=== PATIENT | female | born 1950 | race Hispanic/Latino ===

== ENCOUNTER 2024-06-04 13:47 | Inpatient (IN) | payer OTHER ==
--- NOTE | 2024-06-04 14:46 | RAD REPORT ---
EXAM DESCRIPTION: CT - Chest Abd Pelvis Wo Con - 06/04/2024 2:30 pm CLINICAL HISTORY: Shortness of breath, chest and abdominal pain COMPARISON: None TECHNIQUE: Computed axial tomography of the chest, abdomen and pelvis was obtained. Oral contrast wa s given. IV contrast was not requested. All CT scans are performed using dose optimization technique as appropriate and may include automated exposure control or mA/KV adjustment according to patient size. FINDINGS: The evaluation of mediastinum, kay, vessels and solid organs is limited secondary to the lack of IV contrast administration Small calcific opacity right upper lobe appears chronic. Linear opacity posterior right lower lobe li omar also chronic. Left lung appears clear 1 centimeter pretracheal mediastinal lymph node. Coronary arterial calcifications. Cardiomegaly A pleural effusion is not present. A pericardial effusion is not seen. The liver, spleen, pancreas, adrenals and kidneys appear grossly normal Prominent atherosclerotic disease. No evidence of diverticulitis. No adnexal mass. Gallbladder wall thickening Small to moderate periumbilical hernia IMPRESSION: Gallbladder wall thickening. Ultrasound recommended
[2024-06-04] MEDS ORDERED: NA CHLORIDE 0.9% 500 ML ONE ×2 (14:58→17:24)
[2024-06-04] MEDS ORDERED: ACETAMINOPHEN 500 MG TAB ONE (14:58)
[2024-06-04] MEDS ORDERED: ONDANSETRON 4 MG/2 ML VIAL ONE (14:58)
[2024-06-04] MEDS ORDERED: NA CHLORIDE 0.9% 100 ML ONE ×2 (14:59→17:24)
[2024-06-04] MEDS ORDERED: CEFEPIME 1 GM/VIAL ONE (14:59)
[2024-06-04 15:24] LABS: Absolute Basophils 0.1 K/uL (0-0.5); Absolute Eosinophils 0.1 K/uL (0-0.5); Absolute Lymphocytes (CBC) 0.8 K/uL (0.7-4.9); Absolute Monocytes 0.9 K/uL (0.1-1.3); Absolute Neutrophil 15.4 K/uL (1.8-8.0); Basophils % 0.7 % (0-1.3); Eosinophils % 0.6 % (0-4.4); Hematocrit 28.5 % (36.0-45.0); Lymphocytes % 4.6 % (15.3-44.8); MCH 27.4 pg (27.0-35.0); MCHC 31.7 g/dL (32.0-36.0); MCV 86.4 fL (80-100); MPV 9.1 fL (7.6-11.3); Monocytes % 5.2 % (3.3-12.3); Neutrophils % 88.9 % (41.7-73.7); Nucleated Red Blood Cells % 0.1 % (0-0); Platelets 169 thou/uL (152-406); Red Cell Distribution Width 15.5 % (12.1-15.2)
[2024-06-04 15:42] LABS: Albumin 2.9 g/dL (3.4-5.0); Albumin/Globulin Ratio 0.7 (1.1-1.8); Anion Gap 18.8 mEq/L (5.0-15.0); Bilirubin Total 0.4 mg/dL (0.2-1.0); Globulin 4.1 g/dL (2.3-3.5); Potassium 4.8 mEq/L (3.5-5.1)
[2024-06-04 15:43] LABS: SARS-CoV-2 Antigen CONTROL BLUE LINE VIS/BG OK; SARS-CoV-2 Antigen Rapid Res Negative (Negative)
[2024-06-04 15:52] LABS: PT Prothrombin Time 11.4 SECONDS (9.4-12.5); PTT, Activated Partial Thromb 25.8 SECONDS (24.3-36.9); Protime INR 1.02
[2024-06-04] MEDS ORDERED: INSULIN REGULAR (HUMAN) 100 UNIT/ML ONE (16:04)
[2024-06-04 16:19] LABS: Blood Morphology Comment NOT SEEN (NOT SEEN); Platelet Estimate ADEQ; Platelets Clumped FEW; White Blood Cell Scan OK (OK)
--- NOTE | 2024-06-04 16:49 | RAD REPORT ---
EXAM DESCRIPTION: US - Abdomen Exam Limited - 06/04/2024 4:25 pm CLINICAL HISTORY: Abdominal pain. COMPARISON: CT June 04, 2024 FINDINGS: Small gallstone. Gallbladder wall measures 7 millimeters with pericholecystic fluid. The biliary tree is normal caliber. IMPRESSION: Cholelithiasis. Thickened gallbladder wall with pericholecystic fluid probably indicating cholecystitis
--- NOTE | 2024-06-04 17:11 | ER ---
Nurse's Notes [facility] Name: Flory Garg Age: 73 yrs Sex: Female : 1950 Arrival Date: 06/04/2024 Time: 13:47 Bed 2 Private MD: Diagnosis: Severe sepsis;Acute cholecystitis;Hyperglycemia Presentation: 06/04 14:05 Chief complaint: Patient states: Yesterday started having chills. Today started having cm10 chills, vomiting, chest pain and shortness of breath. Pt was sent to the ED from Dialysis. Last dialysis was Tuesday. Coronavirus screen: Client denies travel out of the [place] in the last 14 days. Ebola Screen: Patient denies travel to an Ebola-affected area in the 21 days before illness onset. No symptoms or risks identified at this time. Initial Sepsis Screen: Does the patient meet any 2 criteria? RR > 20 per min. Temp <36.0*C (96.8*F)) or > 38.3*C (100.9*F). Does the patient have a suspected source of infection? No. Patient's initial sepsis screen is negative. Risk Assessment: Do you want to hurt yourself or someone else? Patient reports no desire to harm self or others. Onset of symptoms was June 04, 2024. 14:05 Method Of Arrival: Wheelchair cm10 14:05 Acuity: SEJAL 2 cm10 Triage Assessment: 17:04 General: Appears in no apparent distress. Behavior is calm, cooperative. Pain: Denies tl4 pain. EENT: No signs and/or symptoms were reported regarding the EENT system. Neuro: Level of Consciousness is awake, alert, obeys commands, Oriented to person, place, time, situation, Speech is normal, Facial symmetry appears normal. Cardiovascular: Denies chest pain, shortness of breath, Capillary refill < 3 seconds Patient's skin is warm and dry. Respiratory: Airway is patent Respiratory effort is even, unlabored, Respiratory pattern is regular, symmetrical, Breath sounds are clear bilaterally. Denies cough, shortness of breath. GI: Reports nausea, vomiting. : No signs and/or symptoms were reported regarding the genitourinary system. Derm: No signs and/or symptoms reported regarding the dermatologic system. Musculoskeletal: No signs and/or symptoms reported regarding the musculoskeletal system. Historical: - Allergies: 14:07 No Known Allergies; cm10 - PMHx: 14:07 End stage renal disease; Dialysis M,W,F; Diabetes mellitus; Hypertensive disorder; cm10 - PSHx: 14:07 Dialysis Fistula Left upper arm; cm10 - Immunization history:: Adult Immunizations up to date. - Infectious Disease History:: Denies. - Social history:: Smoking status: Patient denies any tobacco usage or history of. - Family history:: not pertinent. Screenin:[facility] ED Fall Risk Assessment (Adult) History of falling in the last 3 months, tl4 including since admission No falls in past 3 months (0 pts) Confusion or Disorientation No (0 pts) Intoxicated or Sedated No (0 pts) Impaired Gait No (0 pts) Mobility Assist Device Used No (0 pt) Altered Elimination No (0 pt) Score/Fall Risk Level 0 - 2 = Low Risk Oriented to surroundings, Maintained a safe environment, Educated pt \T\ family on fall prevention, incl call for assistance when getting out of bed, Assessed \T\ reinforced patient's understanding of fall precautions. Abuse screen: Denies threats or abuse. Denies injuries from another. Nutritional screening: No deficits noted. Tuberculosis screening: No symptoms or risk factors identified. Assessment: 15:15 Reassessment: Patient and/or family updated on plan of care and expected duration. Pain tl4 level reassessed. Patient is alert, oriented x 3, equal unlabored respirations, skin warm/dry/pink. Pt denies any needs. Pt in position of comfort. Call lock at bedside. Daughter at bedside. Will continue to monitor. 16:53 Reassessment: Patient and/or family updated on plan of care and expected duration. Pain tl4 level reassessed. Patient is alert, oriented x 3, equal unlabored respirations, skin warm/dry/pink. Call lock at bedside. Family at bedside. Pt updated on status. Pt denies any needs. Will continue to monitor Patient states feeling better. 16:54 Pain: Denies pain. GI: Abdomen is non-distended. tl4 Vital Signs: 14:05 BP 164 / 68; Pulse 62; Resp 28; Temp 102.9(O); Pulse Ox 96% on R/A; Weight 65.77 kg; cm10 Height 5 ft. 0 in. ; Pain 7/10; 14:30 BP 146 / 45; Pulse 57; Resp 21; Pulse Ox 96% on R/A; tl4 15:00 BP 147 / 44; Pulse 57; Resp 22; Temp 101.4; Pulse Ox 96% on R/A; tl4 15:30 BP 137 / 47; Pulse 56; Resp 16; Pulse Ox 95% on R/A; tl4 16:00 BP 133 / 47; Pulse 54; Resp 19; Pulse Ox 96% on R/A; tl4 16:30 BP 124 / 42; Pulse 53; Resp 14; Temp 99.1(O); Pulse Ox 97% on R/A; tl4 17:30 BP 130 / 45; Pulse 67; Resp 13; Temp 99.1(O); Pulse Ox 99% on R/A; tl4 18:11 BP 131 / 89; Pulse 66; Resp 18; Pulse Ox 97% on R/A; tl4 14:05 Body Mass Index 28.32 (65.77 kg, 152.4 cm) cm10 14:05 Pain Scale: Adult cm10 ED Course: 13:53 Patient arrived in ED. mg5 13:57 Larry Butler MD is Attending Physician. rt 14:07 Triage completed. cm10 14:08 Arm band placed on Patient placed in an exam room, on a stretcher. cm10 14:32 CT Chest Abdomen Pelvis W/O Contrast In Process Unspecified. EDMS 14:32 EKG completed in triage. Results shown to MD. cm10 14:33 Jian Patel, RN is Primary Nurse. rs5 14:33 EKG done, by ED staff, reviewed by Larry Butler MD. cm10 15:12 CMP Sent. tl4 15:12 Lactate w/ 2H reflex if indic. Sent. tl4 15:12 Protime (+inr) Sent. tl4 15:12 Ptt, Activated Sent. tl4 15:12 Influenza Screen (a \T\ B) Sent. tl4 15:12 SARS RAPID Sent. tl4 15:12 CBC with Automated Diff Sent. tl4 15:15 Patient has correct armband on for positive identification. Placed in gown. Bed in low tl4 position. Call light in reach. Side rails up X2. Adult w/ patient. Provided Education on: ed process, call lock. Client placed on continuous cardiac and pulse oximetry monitoring. NIBP monitoring applied. pole cutter on. Door closed. Noise minimized. Lights dimmed. Moved to private room. Pillow given. 15:53 [address] Butler at bedside discussing plan of care. elida 1521 BEULAH met with patient and daughter at bedside in the ED exam room. Patient identified by name and . Demographic sheet confirmed. Patient is visiting the [facility] for the of her grandson. Daughter is unsure if there is an MPOA in place. Patient states she has a walker that she uses the most of the time and will use the wheelchair if feeling extra tired. Patient states she has dialysis MWF. Daughter states dialysis was arranged locally during their visit,however was unable to go today since she woke up feeling ill. Mrs. Garg has another daughter named Anahi Reynolds who lives with her in [facility]. No HH, home oxygen or medical services at this time. Daughter at bedside states the preferred plan is for Anahi to transport Mrs. Garg back home upon discharge. CM team will continue to follow and coordinate care. 16:27 US Abdomen Limited In Process Unspecified. EDMS 17:03 Warm blanket given. tl4 17:05 No provider procedures requiring assistance completed. Inserted saline lock: 22 gauge tl4 in right antecubital area, using aseptic technique. Blood collected. Flushed with 10 mL NS. 17:09 Erin Buckley MD is Hospitalizing Provider. rt 18:22 Blood Culture Adult (2): computer cancelled cultures, reorder Sent. tl4 18:32 Patient admitted, IV remains in place. tl4 Administered Medications: 15:23 Drug: NS 0.9% IV 500 ml IV at bolus once Route: IV; Rate: bolus; Site: right tl4 antecubital; Delivery: Primary tubing; 17:38 Follow up: Response: No adverse reaction; IV Status: Completed infusion; IV Intake: tl4 500ml 15:24 Drug: Cefepime IVPB 1 grams IVPB at 200 ml/hr once over 30 mins; (mix in NS 100 mL) tl4 Route: IVPB; Rate: 200 ml/hr; Infused Over: 30 mins; Site: right antecubital; 17:38 Follow up: Response: No adverse reaction; IV Status: Completed infusion; IV Intake: tl4 100ml 15:24 Drug: Ondansetron IVP 4 mg IVP once; over 2 minutes Route: IVP; Infused Over: 2 mins; tl4 Site: right antecubital; 17:38 Follow up: Response: No adverse reaction tl4 15:31 Drug: Acetaminophen PO 1000 mg PO once Route: PO; tl4 18:04 Follow up: Response: No adverse reaction; Temperature is decreased tl4 16:20 Drug: Insulin Regular Human IVP 10 units IVP once {Co-Signature: rs5 (Jian Patel tl4 RN).} Route: IVP; Site: right antecubital; 17:38 Follow up: Response: No adverse reaction tl4 18:08 Drug: Piperacillin-Tazobactam IVPB 3.375 grams IVPB once over 60 mins; (mix in NS 100 tl4 mL) Route: IVPB; Infused Over: 60 mins; Site: right antecubital; Delivery: Primary tubing; 18:32 Follow up: Response: No adverse reaction; IV Status: Completed infusion; IV Intake: tl4 100ml 18:08 Drug: NS 0.9% IV 500 ml IV at bolus once Route: IV; Rate: bolus; Site: right tl4 antecubital; Delivery: Primary tubing; 18:32 Follow up: Response: No adverse reaction; IV Status: Infusion continued; IV Intake: tl4 200ml Medication: 17:05 VIS not applicable for this client. tl4 Intake: 17:38 IV: 500ml; Total: 500ml. tl4 17:38 IV: 100ml; Total: 600ml. tl4 18:32 IV: 100ml; Total: 700ml. tl4 18:32 IV: 200ml; Total: 900ml. tl4 Outcome: 17:10 Decision to Hospitalize by Provider. rt 18:32 Admitted to Med/surg accompanied by tech, via stretcher, room 202, tl4 18:32 Condition: stable 18:32 Instructed on the need for admit, 18:33 Patient left the ED. tl4 Signatures: Dispatcher [employer] EDAK Larry Butler MD MD rt Jian Patel, DIANA RN rs5 Chen Webb RN RN [facility] Rubia Grayson mg5 Lonnie Gomez RN RN tl4 Kavita Abernathy RN RN ane Jian Patel RN rs5
--- NOTE | 2024-06-04 17:11 | EDPHYS ---
Physician Documentation [facility] Name: Flory Garg Age: 73 yrs Sex: Female : 1950 Arrival Date: 06/04/2024 Time: 13:47 Bed 2 Private MD: ED Physician Larry Butler HPI: 06/04 14:39 This 73 yrs old Female presents to ER via Wheelchair with complaints of Fever, rt Vomiting. 14:39 Patient presents to the ED with chills, fever, vomiting. Chills started yesterday. rt Patient was going to dialysis today when she was noted to have a fever, states that she has a chest pain, vomiting but denies any abdominal pain. Denies other acute complaints at this time, symptoms are moderate in severity, no other aggravating elevating factors.. Historical: - Allergies: 14:07 No Known Allergies; cm10 - PMHx: 14:07 End stage renal disease; Dialysis M,W,F; Diabetes mellitus; Hypertensive disorder; cm10 - PSHx: 14:07 Dialysis Fistula Left upper arm; cm10 - Immunization history:: Adult Immunizations up to date. - Infectious Disease History:: Denies. - Social history:: Smoking status: Patient denies any tobacco usage or history of. - Family history:: not pertinent. ROS: 14:39 MS/Extremity: Negative for injury and deformity, Skin: Negative for injury, rash, and rt discoloration, Neuro: Negative for headache, weakness, numbness, tingling, and seizure, 14:39 Constitutional: Positive for chills, fever, 14:39 Cardiovascular: Positive for chest pain, Negative for edema, 14:39 Respiratory: Positive for shortness of breath, Negative for cough, 14:39 Abdomen/GI: Positive for nausea and vomiting, Negative for abdominal pain, Exam: 14:39 Constitutional: This is a well developed, well nourished patient who is awake, alert, rt and in no acute distress. Head/Face: Normocephalic, atraumatic. Chest/axilla: Normal chest wall appearance and motion. Nontender with no deformity. No lesions are appreciated. Cardiovascular: Regular rate and rhythm with a normal S1 and S2. No gallops, murmurs, or rubs. Normal PMI, no JVD. No pulse deficits. Respiratory: Lungs have equal breath sounds bilaterally, clear to auscultation and percussion. No rales, rhonchi or wheezes noted. No increased work of breathing, no retractions or nasal flaring. Abdomen/GI: Soft, non-tender, with normal bowel sounds. No distension or tympany. No guarding or rebound. No evidence of tenderness throughout. Skin: Warm, dry with normal turgor. Normal color with no rashes, no lesions, and no evidence of cellulitis. MS/ Extremity: Pulses equal, no cyanosis. Neurovascular intact. Full, normal range of motion. Neuro: Awake and alert, GCS 15, oriented to person, place, time, and situation. Cranial nerves II-XII grossly intact. Motor strength 5/5 in all extremities. Sensory grossly intact. Cerebellar exam normal. Normal gait. 14:40 ECG was reviewed by the Attending Physician. rt Vital Signs: 14:05 BP 164 / 68; Pulse 62; Resp 28; Temp 102.9(O); Pulse Ox 96% on R/A; Weight 65.77 kg; cm10 Height 5 ft. 0 in. ; Pain 7/10; 14:30 BP 146 / 45; Pulse 57; Resp 21; Pulse Ox 96% on R/A; tl4 15:00 BP 147 / 44; Pulse 57; Resp 22; Temp 101.4; Pulse Ox 96% on R/A; tl4 15:30 BP 137 / 47; Pulse 56; Resp 16; Pulse Ox 95% on R/A; tl4 16:00 BP 133 / 47; Pulse 54; Resp 19; Pulse Ox 96% on R/A; tl4 16:30 BP 124 / 42; Pulse 53; Resp 14; Temp 99.1(O); Pulse Ox 97% on R/A; tl4 17:30 BP 130 / 45; Pulse 67; Resp 13; Temp 99.1(O); Pulse Ox 99% on R/A; tl4 18:11 BP 131 / 89; Pulse 66; Resp 18; Pulse Ox 97% on R/A; tl4 14:05 Body Mass Index 28.32 (65.77 kg, 152.4 cm) cm10 14:05 Pain Scale: Adult cm10 MDM: 14:09 Patient medically screened. rt 20:23 Differential diagnosis: Viral syndrome, sepsis, cholecystitis. Data reviewed: vital rt signs, nurses notes, lab test result(s), EKG, radiologic studies. Consideration of Admission/Observation Patient was admitted/placed on observation. Management of patient was discussed with the following: [employer] Treating Unit Operator: Discussed with Dr. Kearns who will evaluate patient in the ED.. I considered the following discharge prescriptions or medication management in the emergency department Medications were administered in the Emergency Department. See MAR. Independent interpretation of the following test(s) in the Emergency Department CT Scan: My interpretation is No bowel obstruction seen on interpretation of CT scan images. Care significantly affected by the following chronic conditions: Chronic Kidney Disease. Counseling: I had a detailed discussion with the patient and/or guardian regarding the historical points, exam findings, and any diagnostic results supporting the discharge/admit diagnosis, lab results, radiology results, the need for further work-up and treatment in the hospital. Response to treatment: the patient's symptoms have markedly improved after treatment. 06/04 14:15 Order name: CMP; Complete Time: 16:20 rt 06/04 14:15 Order name: Lactate w/ 2H reflex if indic.; Complete Time: 16:20 rt 06/04 14:15 Order name: Protime (+inr); Complete Time: 16:20 rt 06/04 14:15 Order name: Ptt, Activated; Complete Time: 16:20 rt 06/04 14:22 Order name: CBC with Automated Diff; Complete Time: 16:20 EDMS 06/04 14:42 Order name: SARS RAPID; Complete Time: 16:20 rt 06/04 14:42 Order name: Influenza Screen (a \T\ B); Complete Time: 16:20 rt 06/04 15:01 Order name: Glucose, Ancillary Testing; Complete Time: 15:10 EDMS 06/04 15:12 Order name: Blood Culture Adult (2): computer cancelled cultures, reorder rt 06/04 15:27 Order name: CBC Smear Scan; Complete Time: 16:20 EDMS 06/04 17:46 Order name: Ghost Lactate-NO COLLECT Timer; Complete Time: 20:23 EDMS 06/04 17:49 Order name: Urinalysis w/ reflexes EDMS 06/04 17:53 Order name: Glucose, Ancillary Testing; Complete Time: 20:23 EDMS 06/04 14:16 Order name: CT Chest Abdomen Pelvis W/O Contrast; Complete Time: 14:55 rt 0812 15:20 Order name: US Abdomen Limited; Complete Time: 16:50 rt 0812 14:16 Order name: Accucheck; Complete Time: 15:12 rt 0812 14:16 Order name: Cardiac monitoring; Complete Time: 14:32 rt 0812 14:16 Order name: EKG - Nurse/Tech; Complete Time: 14:32 rt 0812 14:16 Order name: IV Saline Lock - Large Bore; Complete Time: 15:12 rt 0812 14:16 Order name: Labs collected and sent; Complete Time: 15:12 rt 0812 14:16 Order name: O2 Per Protocol; Complete Time: 14:32 rt 0812 14:16 Order name: O2 Sat Monitoring; Complete Time: 14:32 rt 0812 14:16 Order name: Vital Signs; Complete Time: 14:32 rt EC:40 Rate is 103 beats/min. Rhythm is regular, Sinus tachycardia with No ectopy. Left axis rt deviation noted. IL interval is normal. QRS interval is normal. QT interval is normal. No Q waves. Clinical impression: NSR w/ Non-specific ST/T Changes. Administered Medications: 15:23 Drug: NS 0.9% IV 500 ml IV at bolus once Route: IV; Rate: bolus; Site: right tl4 antecubital; Delivery: Primary tubing; 17:38 Follow up: Response: No adverse reaction; IV Status: Completed infusion; IV Intake: tl4 500ml 15:24 Drug: Cefepime IVPB 1 grams IVPB at 200 ml/hr once over 30 mins; (mix in NS 100 mL) tl4 Route: IVPB; Rate: 200 ml/hr; Infused Over: 30 mins; Site: right antecubital; 17:38 Follow up: Response: No adverse reaction; IV Status: Completed infusion; IV Intake: tl4 100ml 15:24 Drug: Ondansetron IVP 4 mg IVP once; over 2 minutes Route: IVP; Infused Over: 2 mins; tl4 Site: right antecubital; 17:38 Follow up: Response: No adverse reaction tl4 15:31 Drug: Acetaminophen PO 1000 mg PO once Route: PO; tl4 18:04 Follow up: Response: No adverse reaction; Temperature is decreased tl4 16:20 Drug: Insulin Regular Human IVP 10 units IVP once {Co-Signature: rs5 (Jian Patel tl4 RN).} Route: IVP; Site: right antecubital; 17:38 Follow up: Response: No adverse reaction tl4 18:08 Drug: Piperacillin-Tazobactam IVPB 3.375 grams IVPB once over 60 mins; (mix in NS 100 tl4 mL) Route: IVPB; Infused Over: 60 mins; Site: right antecubital; Delivery: Primary tubing; 18:32 Follow up: Response: No adverse reaction; IV Status: Completed infusion; IV Intake: tl4 100ml 18:08 Drug: NS 0.9% IV 500 ml IV at bolus once Route: IV; Rate: bolus; Site: right tl4 antecubital; Delivery: Primary tubing; 18:32 Follow up: Response: No adverse reaction; IV Status: Infusion continued; IV Intake: tl4 200ml Disposition Summary: 06/04/24 17:10 Hospitalization Ordered Notes: Hospitalization Status: Inpatient Admission rt Provider: Erin Buckley rt Location: Telemetry/[facility] (Inpatient) rt Condition: Guarded rt Problem: new rt Symptoms: have improved rt Bed/Room Type: Standard rt Room Assignment: 202(06/04/24 17:52) Diagnosis - Severe sepsis rt - Acute cholecystitis rt - Hyperglycemia rt Forms: - Medication Reconciliation Form rt - SBAR form rt - Leadership Thank You Letter rt Critical care time excluding procedures: 20:23 Critical care time: Bedside Care: 30 minutes, Consultation: 5 minutes. Total time: 35 rt minutes Signatures: Dispatcher [employer] EDMS Jackie Everett Ryan, MD MD rt Chen Webb RN RN cm10 Lonnie Gomez RN RN tl4 Jian Patel RN rs5 Corrections: (The following items were deleted from the chart) 14:21 14:21 CBC+H.LAB.BRZ ordered. EDMS EDMS 14:21 14:21 COMPREHENSIVE METABOLIC PANEL+C.LAB.BRZ ordered. EDMS EDMS 14:21 14:21 LACTATE+C.LAB.BRZ ordered. EDMS EDMS 14:21 14:21 PROTIME (+INR)+COAG.LAB.BRZ ordered. EDMS EDMS 14:21 14:21 PTT, ACTIVATED+COAG.LAB.BRZ ordered. EDMS EDMS 14:22 Chest Abdomen Pelvis Wo Con+CT.RAD.BRZ ordered. EDMS EDMS 17:52 17:10 rt eb
[2024-06-04] MEDS ORDERED: PIPERACIL/TAZO 3.375 GM VIAL IV ONE (17:24)
--- NOTE | 2024-06-04 17:44 | P.HP ---
Certification for Inpatient Patient admitted to: Observation <Mickie Singletary - Last Filed: 06/05/24 00:50> Patient History Date of Service: 06/05/24 Reason for admission: Cholecystitis History of Present Illness: 73 yrs old [id number]-[id number] female with a past medical history End stage renal disease; Dialysis M,W,F; Diabetes mellitus; Hypertensive disorder; presents to the emergency room with fever. She reports associated nausea vomiting chills. She reports going to [facility] dialysis today and was sent home due to fever of 102. She reports associated fever, nausea vomiting abdominal pain and chills over the last several days that has been intermittent. She reports symptoms worse today. She lives near [facility]. Is here visiting her family. She reports she has dialysis scheduled at [facility] Tuesday W tuesday. She denies chest pain, edema, dizziness. Family is at bedside, patient was evaluated by Dr. Quiroz for acute cholecystitis, with possible cholecystectomy in the a.m. Nephrology to consult end-stage renal disease on to eval hemodialysis needed while inpatient. Plan to admit to observation, for acute cholecystitis, end-stage renal disease on hemodialysis, with nephrology to consult. - Past Medical/Surgical History -: End-stage renal disease hemodialysis -: Diabetes mellitus type 2 -: Hypertension -: Dialysis fistula right chest wall - Social History Smoking Status: Never smoker Alcohol use: No CD- Drugs: No Caffeine use: No Place of Residence: Home <Mickie Singletary - Last Filed: 06/05/24 00:50> Date of Service: 06/05/24 <Erin Buckley - Last Filed: 06/05/24 11:50> Allergies No Known Allergies Allergy (Verified 06/05/24 00:42) Home Medications: Aspirin [Aspirin EC] 81 mg PO DAILY 06/05/24 Atorvastatin Calcium 40 mg PO BEDTIME 06/05/24 Carvedilol [Coreg] 12.5 mg PO BID 06/05/24 Clopidogrel Bisulfate [Plavix] 75 mg PO DAILY 06/05/24 Ferric Citrate [Auryxia] 1 g PO TID 06/05/24 Insulin Aspart Prot/Insuln Asp [Novolog Mix 70-30 Flexpen Syrn] 40 unit SQ DAILY 06/05/24 Nifedipine [Nifedipine ER] 30 mg PO DAILY 06/05/24 Review of Systems Per HPI <Mickie Singletary - Last Filed: 06/05/24 00:50> Physical Examination - Physical Exam General: Alert, In no apparent distress, Oriented x3 HEENT: Atraumatic, Normocephalic Neck: Supple, 2+ carotid pulse no bruit Respiratory: Normal air movement, Diminished Cardiovascular: Normal pulses, Regular rate/rhythm Capillary refill: <2 Seconds Gastrointestinal: Normal bowel sounds, Other (Right upper quadrant tenderness) Musculoskeletal: No clubbing, No swelling Integumentary: No breakdown, No significant lesion Neurological: Normal speech, Normal strength at 5/5 x4 extr Urinary: Dialysis catheter (Right chest wall) - Studies Laboratory Data (last 24 hrs) 06/04/24 06/04/24 06/04/24 15:05 15:05 15:05 WBC 17.40 H Hgb 9.0 L Hct 28.5 L Plt Count 169 PT 11.4 INR 1.02 APTT 25.8 Sodium 129 L Potassium 4.8 BUN 77 H Creatinine 7.04 H Glucose 578 H* Total Bilirubin 0.4 AST 16 ALT 21 Alkaline Phosphatase 157 H Microbiology Data (last 24 hrs): 06/04/24 14:50 Nasopharnyx Influenza Type A Antigen Screen - Final 06/04/24 14:50 Nasopharnyx Influenza Type B Antigen Screen - Final <Mickie Singletary - Last Filed: 06/05/24 00:50> - Studies Laboratory Data (last 24 hrs) 06/04/24 06/04/24 06/04/24 15:05 15:05 15:05 WBC 17.40 H Hgb 9.0 L Hct 28.5 L Plt Count 169 PT 11.4 INR 1.02 APTT 25.8 Sodium 129 L Potassium 4.8 BUN 77 H Creatinine 7.04 H Glucose 578 H* Total Bilirubin 0.4 AST 16 ALT 21 Alkaline Phosphatase 157 H Microbiology Data (last 24 hrs): 06/04/24 14:50 Nasopharnyx Influenza Type A Antigen Screen - Final 06/04/24 14:50 Nasopharnyx Influenza Type B Antigen Screen - Final <Erin Buckley - Last Filed: 06/05/24 11:50> Assessment and Plan - Plan Assessment plan Sepsis without shock secondary to acute cholecystitis abdominal pain Acute cholecystitis Surgery to eval, IV fluids, IV antibiotic, n.p.o. after midnight, Surgeon was in room, discussed with patient and family laparoscopic cholecystectomy, risks and possible complications, family verbalized understand As needed analgesics, antiemetics, [id number] female with a past medical history End stage renal disease; Dialysis M,W,F; Diabetes mellitus; Hypertensive disorder; presents to the emergency room with fever. She reports associated nausea vomiting chills. She reports going to [facility] dialysis today and was sent home due to fever of 102. She reports associated fever, nausea vomiting abdominal pain and chills over the last several days that has been intermittent. She reports symptoms worse today. She lives near [facility]. Is here visiting her family. She reports she has dialysis scheduled at [facility] Tuesday. She denies chest pain, edema, dizziness. Family is at bedside, patient was evaluated by Dr. Quiroz for acute cholecystitis, end-stage renal disease on hemodialysis. Blood cultures, urine culture CT Of the abdomen pelvis IMPRESSION: Gallbladder wall thickening. Ultrasound recommended Abdominal ultrasound IMPRESSION: Cholelithiasis. Thickened gallbladder wall with pericholecystic fluid probably indicating cholecystitis End-stage renal disease on hemodialysis Nephrology consult for hemodialysis Hypertension Resume appropriate home meds EKG Rate is 103 beats/min. Rhythm is regular, Sinus tachycardia with No ectopy. Left axis rt deviation noted. MO interval is normal. QRS interval is normal. QT interval is normal. No Q waves. Clinical impression: NSR w/ Non-specific ST/T Change Diabetes type 2 Accu-Cheks, sliding scale Full code Diet n.p.o. after midnight DVT SCDs Disposition Home independent prior . Discharge Plan: Home - Advance Directives Does patient have a Living Will: No Does patient have a Durable POA for Healthcare: No - Code Status/Comfort Care Code Status: Full Code Critical Care: No Time Spent Managing Pts Care (In Minutes): 55 <Mickie Singletary - Last Filed: 06/05/24 00:50> - Plan Pt seen and examined. I agree with the note by the [employer]. Pt is a 73 yo female with past medical history End stage renal disease on Dialysis MWF, Diabetes mellitus, and Hypertensive disorder who presents with fever. Pt was sent from dialysis center to the ER for further evaluation of the fever. On admission, lab studies show elevated WBC, cr 7.04, Na 129, elevated blood sugar. CT abd shows acute cholecystitis. At bedside, pt is in NAD. A/P: Sepsis 2/2 Acute cholecystitis: Per CT abd. Continue iv zosyn and f/u blood cx. Consulted Gen surgeon. ESRD: Continue HD per schedule. Consulted Nephrology for dialysis. Htn: Continu ehome med. DM Ii: Continue accuchek, SSI, lantus 20u daily and ADA diet Code: full <Erin Buckley - Last Filed: 06/05/24 11:50>
[2024-06-04] MEDS ORDERED: MORPHINE 2 MG/ML SYR IV PRN (19:01)
[2024-06-04] MEDS ORDERED: ACETAMINOPHEN 500 MG TAB PO PRN (19:01)
[2024-06-04] MEDS: INSULIN REGULAR (HUMAN) 100 UNIT/ML SQ SCH (20:54)
--- NOTE | 2024-06-04 20:55 | P.CNS ---
Date of Consult: 06/05/24 Reason for Consult: ESRD Requesting Physician: Erin Buckley Chief Complaint: Fever History of Present Illness: [id number] 14:39 This 73 yrs old Female presents to ER via Wheelchair with complaints of Fever, rt Vomiting. 14:39 Patient presents to the ED with chills, fever, vomiting. Chills started yesterday. rt Patient was going to dialysis today when she was noted to have a fever, states that she has a chest pain, vomiting but denies any abdominal pain. Denies other acute complaints at this time, symptoms are moderate in severity, no other aggravating elevating factors.. She [place] dialysis [place] a [facility] unit. She gets HD through the [facility] and reports a usual UF of 3-4 liters over four hours. They have not used the CVC for four weeks, and it is supposed to be removed. She is here for the of her grandson on Tuesday. Allergies No Known Allergies Allergy (Verified 06/05/24 00:42) Home medications list reviewed: Yes Home Medications: Aspirin [Aspirin EC] 81 mg PO DAILY 06/05/24 Atorvastatin Calcium 40 mg PO BEDTIME 06/05/24 Carvedilol [Coreg] 12.5 mg PO BID 06/05/24 Clopidogrel Bisulfate [Plavix] 75 mg PO DAILY 06/05/24 Ferric Citrate [Auryxia] 1 g PO TID 06/05/24 Insulin Aspart Prot/Insuln Asp [Novolog Mix 70-30 Flexpen Syrn] 40 unit SQ DAILY 06/05/24 Nifedipine [Nifedipine ER] 30 mg PO DAILY 06/05/24 - Past Medical/Surgical History Diabetic: Yes -: ESRD -: HTN -: Diastolic CHF -: DM II -: Anemia Review of Systems 10-point ROS is otherwise unremarkable General: Malaise Gastrointestinal: Abdominal Pain Physical Examination Temp Pulse Resp BP Pulse Ox 99.1 F 66 18 131/89 06/04/24 17:30 06/04/24 18:11 06/04/24 18:11 06/04/24 18:11 General: In no apparent distress, Oriented x3, Cooperative HEENT: Atraumatic Neck: Supple Respiratory: Normal air movement Cardiovascular: Regular rate/rhythm Gastrointestinal: Non-distended, No guarding Musculoskeletal: No clubbing, No contractures Integumentary: No rashes, No cyanosis Neurological: Normal speech Laboratory Data (last 24 hrs) 06/04/24 06/04/24 06/04/24 15:05 15:05 15:05 WBC 17.40 H Hgb 9.0 L Hct 28.5 L Plt Count 169 PT 11.4 INR 1.02 APTT 25.8 Sodium 129 L Potassium 4.8 BUN 77 H Creatinine 7.04 H Glucose 578 H* Total Bilirubin 0.4 AST 16 ALT 21 Alkaline Phosphatase 157 H Imagings Data: EXAM DESCRIPTION: CT - Chest Abd Pelvis Wo Con - 06/04/2024 2:30 pm CLINICAL HISTORY: Shortness of breath, chest and abdominal pain COMPARISON: None TECHNIQUE: Computed axial tomography of the chest, abdomen and pelvis was obtained. Oral contrast was given. IV contrast was not requested. All CT scans are performed using dose optimization technique as appropriate and may include automated exposure control or mA/KV adjustment according to patient size. FINDINGS: The evaluation of mediastinum, kay, vessels and solid organs is limited secondary to the lack of IV contrast administration Small calcific opacity right upper lobe appears chronic. Linear opacity chief of anesthesiology ior right lower lobe likely also chronic. Left lung appears clear 1 centimeter pretracheal mediastinal lymph node. Coronary arterial calcifications. Cardiomegaly A pleural effusion is not present. A pericardial effusion is not seen. The liver, spleen, pancreas, adrenals and kidneys appear grossly normal Prominent atherosclerotic disease. No evidence of diverticulitis. No adnexal mass. Gallbladder wall thickening Small to moderate periumbilical hernia IMPRESSION: Gallbladder wall thickening. Ultrasound recommended EXAM DESCRIPTION: US - Abdomen Exam Limited - 06/04/2024 4:25 pm CLINICAL HISTORY: Abdominal pain. COMPARISON: CT June 04, 2024 FINDINGS: Small gallstone. Gallbladder wall measures 7 millimeters with pericholecystic fluid. The biliary tree is normal caliber. IMPRESSION: Cholelithiasis. Thickened gallbladder wall with pericholecystic fluid probably indicating cholecystitis Conclusions/Impression: 73 yo HF admitted for cholecystitis ESRD Hyponatremia -Arrange for acute HD HTN with CKD/ CHF -Hold antihypertensives at this time Diastolic CHF, chronic -Low sodium diet -HD with UF Anemia in CKD -Retacrit qHD CKD MBD -NPO Atherosclerosis of the aorta -Restart statin Hospitalist and ER notes reviewed Thank you kindly for the consultation
[2024-06-04] MEDS ORDERED: MANNITOL 25% 12.5 GM/50 ML VIAL IV PRN (20:58)
[2024-06-04] MEDS ORDERED: NA CHLORIDE 0.9% 1,000 ML IV PRN (20:58)
[2024-06-04] MEDS ORDERED: PIPER TAZO 3.375 GM in NA CHLORIDE 0.9% 100 ML IV SCH (21:00)
[2024-06-04] MEDS ORDERED: PIPER TAZO 2.25 GM in NA CHLORIDE 0.9% 50 ML IV SCH (21:00)
[2024-06-04] MEDS ORDERED: ALBUMIN HUMAN 25% 50 ML IV SCH (21:00)
[2024-06-04] MEDS: PIPER TAZO 3.375 GM in NA CHLORIDE 0.9% 100 ML IV SCH (22:17)
[2024-06-05 07:40] LABS: Absolute Basophils 0.1 K/uL (0-0.5); Absolute Eosinophils 0.3 K/uL (0-0.5); Absolute Lymphocytes (CBC) 2.4 K/uL (0.7-4.9); Absolute Monocytes 0.9 K/uL (0.1-1.3); Absolute Neutrophil 12.5 K/uL (1.8-8.0); Basophils % 0.4 % (0-1.3); Eosinophils % 1.6 % (0-4.4); Hematocrit 25.9 % (36.0-45.0); Hemoglobin 8.5 g/dL (12.0-15.0); MCH 28.1 pg (27.0-35.0); MCHC 32.8 g/dL (32.0-36.0); MCV 85.7 fL (80-100); Monocytes % 5.7 % (3.3-12.3); Neutrophils % 77.3 % (41.7-73.7); Nucleated Red Blood Cells % 0.2 % (0-0); Platelets 169 thou/uL (152-406); RBC Red Blood Cell Count 3.02 M/uL (3.86-4.86); Red Cell Distribution Width 15.2 % (12.1-15.2)
[2024-06-05 07:48] LABS: Albumin 2.5 g/dL (3.4-5.0); Albumin/Globulin Ratio 0.6 (1.1-1.8); Anion Gap 13.4 mEq/L (5.0-15.0); Bilirubin Total 0.5 mg/dL (0.2-1.0); Magnesium 2.4 mg/dL (1.6-2.4); Phosphorus 6.7 mg/dL (2.5-4.9); Potassium 5.4 mEq/L (3.5-5.1); Protein, Total 6.5 g/dL (6.4-8.2)
[2024-06-05] MEDS: ONDANSETRON 4 MG/2 ML VIAL IV PRN (08:13)
[2024-06-05] MEDS: INSULIN GLARGINE 100 UNIT/ML SQ SCH (09:00)
[2024-06-05 10:43] LABS: Hepatitis B surface AG Interp. Nonreactive (Nonreactive)
[2024-06-05 10:44] LABS: HBsAG Nonreactive Report Report
--- NOTE | 2024-06-05 11:52 | P.PN ---
Subjective Date of Service: 06/05/24 Chief Complaint: Fever Pt is resting comfortably in bed. She is in NAD. Pt is waiting for dialysis before doing cholecystectomy. No other complaints. Review of Systems General: Unremarkable Eyes: Unremarkable ENT: Unremarkable Respiratory: Unremarkable Cardiovascular: Unremarkable Gastrointestinal: Unremarkable Genitourinary: Unremarkable Musculoskeletal: Unremarkable Integumentary: Unremarkable Neurological: Unremarkable Lymphatics: Unremarkable Physical Examination - Vital Signs Temperature: 98.2 F Blood Pressure: 148/67 Pulse: 16 Respirations: 16 Pulse Ox (%): 92 - Physical Exam General: Alert, In no apparent distress, Oriented x3 HEENT: Atraumatic, Normocephalic, PERRLA Neck: Supple, 2+ carotid pulse no bruit, JVD not distended Respiratory: Clear to auscultation bilaterally, Normal air movement Cardiovascular: No edema, Normal pulses, Regular rate/rhythm, Normal S1 S2 Capillary refill: <2 Seconds Gastrointestinal: Normal bowel sounds, Soft and benign, Non-distended Musculoskeletal: No clubbing, No swelling, No contractures Integumentary: No rashes, No breakdown, No significant lesion Neurological: Normal gait, Normal speech, Normal strength at 5/5 x4 extr, Normal tone, Sensation intact Lymphatics: No axilla or inguinal lymphadenopathy - Studies Laboratory Data (last 24 hrs) 06/05/24 06/05/24 06/04/24 07:15 07:15 15:05 WBC 16.20 H Hgb 8.5 L Hct 25.9 L Plt Count 169 PT 11.4 INR 1.02 APTT 25.8 Sodium 130 L Potassium 5.4 H BUN 89 H Creatinine 7.25 H Glucose 278 H Phosphorus 6.7 H Magnesium 2.4 Total Bilirubin 0.5 AST 11 L ALT 18 Alkaline Phosphatase 121 H D 06/04/24 06/04/24 15:05 15:05 WBC 17.40 H Hgb 9.0 L Hct 28.5 L Plt Count 169 PT INR APTT Sodium 129 L Potassium 4.8 BUN 77 H Creatinine 7.04 H Glucose 578 H* Phosphorus Magnesium Total Bilirubin 0.4 AST 16 ALT 21 Alkaline Phosphatase 157 H Microbiology Data (last 24 hrs): 06/04/24 14:50 Nasopharnyx Influenza Type A Antigen Screen - Final 06/04/24 14:50 Nasopharnyx Influenza Type B Antigen Screen - Final Assessment And Plan - Plan Sepsis 2/2 Acute cholecystitis: Per CT abd. Continue iv zosyn and f/u blood cx. Consulted Gen surgeon. ESRD: Continue HD per schedule. Consulted Nephrology for dialysis. Htn: Continue home med. DM II: Continue accuchek, SSI, lantus 20u daily and ADA diet Code: full Dispo: pending hospital course.
[2024-06-05] MEDS: PNEUMOCOCCAL VACCINE 0.5 ML IMVAC ONE (14:00)
[2024-06-05] MEDS ORDERED: propofoL 200 MG/20 ML VIAL IV ONE (15:01)
[2024-06-05] MEDS ORDERED: ROCURONIUM 50 MG/5 ML VIAL IV ONE (15:01)
[2024-06-05] MEDS ORDERED: LIDOCAINE 2% MPF 5 ML VIAL ONE (15:01)
[2024-06-05] MEDS ORDERED: FENTANYL CITR 100 MCG/2 ML ONE (15:01)
[2024-06-05] MEDS ORDERED: ONDANSETRON 4 MG/2 ML VIAL ONE (15:01)
[2024-06-05] MEDS: NA CHLORIDE 0.9% 500 ML ONE (15:30)
[2024-06-05] MEDS: LIDOCAINE HCL/EPINEPHRINE 20 ML MDV ONE (16:05)
[2024-06-05] MEDS ORDERED: NEOSTIGMINE 1 MG/ML -10 ML VIAL ONE (16:57)
[2024-06-05] MEDS ORDERED: GLYCOPYRROLATE 0.2 MG/ML SYR ONE (16:57)
--- NOTE | 2024-06-05 17:22 | P.OP ---
Preoperative diagnosis: Cholecystitis, HD Catheter in place Postoperative diagnosis: Cholecystitis, HD Catheter in place Primary procedure: Laparoscopic Cholecystectomy with ICG Cholangiography Secondary procedure: Removal of Tunneled Hemodialysis Catheter Anesthesia: GETA + Local Estimated blood loss: <5cc Specimen: Gallbladder, Catheter Tip for Culture Findings: Cholecystitis, RUQ Adhesions, Complications: None Implants: Daron Hemostatic Powder Transferred to: Recovery Room Condition: Good
[2024-06-05] MEDS: MORPHINE 4 MG/ML SYR ONE (18:00)
[2024-06-05] MEDS: MEPERIDINE HCL 25 MG/ML SYR ONE (18:28)
[2024-06-05] MEDS ORDERED: HYDROCODONE/APAP 5/325 MG TAB PO PRN (22:08)
--- NOTE | 2024-06-06 04:33 | OP ---
Date of Procedure: 06/05/2024 Surgeon: Brandon Kearns MD, Preoperative Diagnoses: 1.Cholecystitis. 2.Attention/management, hemodialysis catheter in place in right internal jugular position. Postoperative Diagnoses: 1.Cholecystitis. 2.Attention/management, hemodialysis catheter in place in right internal jugular position. Procedure Performed: 1.Laparoscopic cholecystectomy with Indocyanine green cholangiography. 2.Removal of tunneled hemodialysis catheter. Anesthesia: General endotracheal plus local with 1% lidocaine with epinephrine. Estimated Blood Loss: Less than 5 mL. Specimen: Gallbladder and catheter tip sent for culture and catheter sent for ID only. Findings: 1.Evidence of acute on chronic cholecystitis with significant adhesions in the right upper quadrant beneath the omentum completely encasing the gallbladder as well as significant thick adhesions. 2.Hydropic gallbladder. 3.Significant scar tissue in the lower abdomen as well with adhesions. Complications: None. Implants: Daron hemostatic powder matrix. Disposition: The patient was transferred to the recovery room in good condition. Procedure In Detail: After informed consent was obtained, the patient was brought to the operating r oom, prepped and draped in usual fashion after adequate anesthesia was achieved. I anesthetized an a hetal in the supraumbilical position down to subcutaneous tissues. A 5 mm 0-degree optical trocar was introduced in the abdomen with no evidence is complication. Insufflation was obtained to 15 mmHg at this time. There was no injury to vital structure upon entry in the abdomen. Additional trocars eunice tamiko in the right upper quadrant, similarly anesthetized and sharply incised. A [address] d under direct visualization without incident or complication. At this point, I placed another troca r in the right upper quadrant. This was similarly anesthetized, sharply incised. A 5 mm trocar was placed under direct visualization without incident or complication. The patient was then positioned in the head up right-side up position. Ratcheted grasper was used to attempt to grasp the patient's gallbladder, which was completely encased at this point. As such, I placed an additional trocar for a total of 4 trocars. The last trocar was placed in the right lower abdomen under direct visualizati on without incident or complication. I then proceeded to take down the scar tissue encasing the gall bladder in the right upper quadrant using electrocautery and blunt dissection circumferentially aroun d the gallbladder to allow for visualization grasping of the gallbladder. After this was completed, I grasped the fundus of the gallbladder, placed it toward the patient's right shoulder and continued the dissection down the Primo pouch of the gallbladder. At this point, I skeletonized 2 structure s identified as both the cystic duct and cystic artery. Critical view of safety was obtained at this point. After skeletonizing the structures, Indocyanine green cholangiography was performed at this point showing the relevant anatomy with the cystic duct and common duct confluence despite the signif icant inflammatory change in hydropic appearance of the gallbladder is visualized with the assistance of Indocyanine green. At this point, I placed double titanium clips on the proximal side and single on the distal side of both the cystic duct and cystic artery and ligated these structures between En do Brian without incident or complication. There was no leakage of bile blood throughout the proced ure. At this point, I removed the gallbladder off the hepatic fossa using electrocautery. There was minimal bleeding from the area of the hepatic fossa and this required minimal fulguration at this po int and the gallbladder was placed in EndoCatch bag, removed through the umbilical trocar site and se nt off for pathologic examination. The area was copiously irrigated once again until completely kb r. Additional fulguration was performed in the bed of the gallbladder and I sprayed Daron hemostati c powder into the subhepatic space to allow for additional hemostasis at this point. I then inspecte d the area with Indocyanine green cholangiography once again and showed no leakage of bile throughout the procedure including at the end of the procedure at this point. I then positioned the patient ba ck in neutral position. Remaining effluent was suctioned out from the perihepatic space. I then nitza sed the umbilical trocar site using a Jose-Sandra suture passer with an 0 Vicryl in an interrupte d fashion with good approximation of tissues. The abdomen was then desufflated under direct visualiz ation without incident or complication. All skin edges were then copiously irrigated and closed with a 4-0 Monocryl in a running fashion. Dermabond was placed over top. At this point, I turned my att ention to the hemodialysis catheter in the right subclavian exit site, but as its course had an inter nal jugular insertion. At this point, the patient was placed in a steep Trendelenburg position and I could dissect it circumferentially around using primarily blunt dissection to bring the cuff into a more reasonable position, however due to the significant scarring, I had to make a small incision ove rlying the skin to allow to bring the cuff into the visual range. At this point, the cuff was visual ized and circumferentially dissected around using a combination of blunt dissection and sharp dissect ion and electrocautery to allow for removal of the cuff. At this point, the pressure was held at the insertion site and the exit site and the catheter was removed. Tip was sent for culture at this poi nt and the remaining catheter was sent for pathologic examination for ID only. The patient was posit ioned in the head up position at this point, I irrigated the exit site at this point and closed the s kin using interrupted 3-0 nylon sutures and a sterile dressing was placed over top. The patient sandy rated the procedure well without incident or complication, transferred to PACU in good condition. Al l counts were correct at the end of the case. SHONDA/NORY Voice ID: [id number] Report ID: [id number]
[2024-06-06 05:04] LABS: Absolute Basophils 0.1 K/uL (0-0.5); Absolute Eosinophils 0.1 K/uL (0-0.5); Absolute Lymphocytes (CBC) 1.8 K/uL (0.7-4.9); Absolute Monocytes 1.3 K/uL (0.1-1.3); Absolute Neutrophil 10.7 K/uL (1.8-8.0); Basophils % 0.5 % (0-1.3); Eosinophils % 0.5 % (0-4.4); Hematocrit 26.8 % (36.0-45.0); Hemoglobin 8.9 g/dL (12.0-15.0); MCH 28.4 pg (27.0-35.0); MCHC 33.1 g/dL (32.0-36.0); MCV 85.8 fL (80-100); MPV 8.8 fL (7.6-11.3); Monocytes % 9.4 % (3.3-12.3); Neutrophils % 76.6 % (41.7-73.7); Platelets 157 thou/uL (152-406); RBC Red Blood Cell Count 3.12 M/uL (3.86-4.86); Red Cell Distribution Width 15.5 % (12.1-15.2)
[2024-06-06 05:16] LABS: Albumin 2.4 g/dL (3.4-5.0); Albumin/Globulin Ratio 0.6 (1.1-1.8); Anion Gap 13.3 mEq/L (5.0-15.0); Bilirubin Total 0.6 mg/dL (0.2-1.0); Globulin 4.1 g/dL (2.3-3.5); Magnesium 2.3 mg/dL (1.6-2.4); Phosphorus 5.7 mg/dL (2.5-4.9); Potassium 5.3 mEq/L (3.5-5.1); Protein, Total 6.5 g/dL (6.4-8.2)
[2024-06-06] MEDS: SODIUM ZIRCONIUM CYCLOSILICATE 10 GM/PKT PO ONE (08:50)
--- NOTE | 2024-06-06 12:03 | P.PN ---
Subjective Date of Service: 06/06/24 Chief Complaint: Fever Pt is resting comfortably in bed. She is in NAD. Pt had dialysis before lap cholecystectomy. Blood culture is growing GNR. Cathter tip cx is pending. Gen surgeon removed dialysis catheter. No other complaints. Review of Systems General: Unremarkable Eyes: Unremarkable ENT: Unremarkable Respiratory: Unremarkable Cardiovascular: Unremarkable Gastrointestinal: Unremarkable Genitourinary: Unremarkable Musculoskeletal: Unremarkable Integumentary: Unremarkable Neurological: Unremarkable Lymphatics: Unremarkable Physical Examination - Vital Signs Temperature: 97.3 F Blood Pressure: 139/51 Pulse: 66 Respirations: 16 Pulse Ox (%): 92 - Physical Exam General: Alert, In no apparent distress, Oriented x3 HEENT: Atraumatic, Normocephalic, PERRLA Neck: Supple, 2+ carotid pulse no bruit, JVD not distended Respiratory: Clear to auscultation bilaterally, Normal air movement Cardiovascular: No edema, Normal pulses, Regular rate/rhythm Capillary refill: <2 Seconds Gastrointestinal: Normal bowel sounds, Soft and benign, Non-distended, Tenderness Musculoskeletal: No clubbing, No swelling, No contractures Integumentary: No rashes, No breakdown, No significant lesion Neurological: Normal gait, Normal speech, Normal strength at 5/5 x4 extr, Normal tone Lymphatics: No axilla or inguinal lymphadenopathy - Studies Microbiology Data (last 24 hrs): 06/04/24 15:05 Blood - Blood Blood Culture Gram Stain - Final 06/04/24 15:05 Blood - Blood Gram Stain - Final Assessment And Plan - Plan Sepsis 2/2 Acute cholecystitis: Per CT abd. Continue iv zosyn and f/u blood cx. Consulted Gen surgeon. Bacteremia: Blood cx is growing GNR. Gen surgon removed dialysis catheter tip. .Pt need to take 1 week of iv abx. Will f/u sensitivities. ESRD: Continue HD per schedule. Consulted Nephrology for dialysis. Will replaced dialysis catheter. Hyperkalemia: K is 5.3. Will give lokelma. Htn: Continue home med. DM II: Continue accuchek, SSI, lantus 20u daily and ADA diet Code: full Dispo: pending hospital course.
[2024-06-06] MEDS: PNEUMOCOCCAL VACCINE 0.5 ML IMVAC ONE (14:00)
[2024-06-06] MEDS: EPOETIN ALFA 10,000 UNIT/ML VIAL IV SCH (17:45)
[2024-06-06 19:26] VITALS: BMI 4181.4
--- NOTE | 2024-06-06 20:27 | P.PN ---
Date of Service: 06/06/24 Vital Signs Temp Pulse Resp BP Pulse Ox 97.3 F 66 16 139/51 L 92 06/06/24 12:03 06/06/24 12:03 06/06/24 12:03 06/06/24 12:03 06/06/24 12:03 Medications Acetaminophen (Acetaminophen 500 Mg Tab) 500 mg PO Q4HP PRN PRN Reason: Pain scale 2-4 (Mild) Hydrocodone Bitart/Acetaminophen (Hydrocodone/Apap 5/325 Mg Tab) 1 tab PO Q6H PRN PRN Reason: Pain scale 5-7 (Moderate) Epoetin Jovan (Epoetin Jovan 10,000 Unit/Ml Vial) 10,000 unit IV EVERY HD DANA Last Admin: 06/06/24 17:45 Dose: 10,000 unit Heparin Sodium (Porcine) (Heparin 1,000 Unit/Ml Vial) 2,000 unit IV EVERY HD PRN PRN Reason: Prevent HD System Clotting Last Admin: 06/06/24 14:57 Dose: 2,000 unit Piperacillin Sod/Tazobactam (Sod 3.375 gm/ Sodium Chloride) 100 mls @ 25 mls/hr IV Q12HR DANA Last Admin: 06/06/24 09:57 Dose: 100 mls Albumin Human (Albumin 25%) 50 mls @ 100 mls/hr IV EVERY HD [facility] Insulin Glargine (Insulin Glargine 100 Unit/Ml) 20 unit SQ DAILY [facility] Last Admin: 06/06/24 09:00 Dose: 20 unit Insulin Human Regular (Insulin Regular (Human) 100 Unit/Ml) 0 unit SQ ACHS [facility]; Protocol Last Admin: 06/06/24 16:30 Dose: Not Given Mannitol (Mannitol 25% 12.5 Gm/50 Ml Vial) 12.5 gm IV EVERY HD PRN PRN Reason: Titrate to SBP (MUST DEFINE) Morphine Sulfate (Morphine 2 Mg/Ml Syr) 2 mg IV Q4H PRN PRN Reason: Pain scale 8-10 (Severe) Ondansetron HCl (Ondansetron 4 Mg/2 Ml Vial) 4 mg IV Q6HP PRN PRN Reason: NAUSEA / VOMITING Last Admin: 06/05/24 08:13 Dose: 4 mg Microbiology Results 06/04/24 15:05 Blood - Blood Aerobic Blood Culture - Preliminary 06/04/24 15:05 Blood - Blood Blood Culture Gram Stain - Final 06/04/24 15:05 Blood - Blood Anaerobic Blood Culture - Preliminary 06/04/24 15:05 Blood - Blood Gram Stain - Final 06/04/24 15:18 Blood - Blood Aerobic Blood Culture - Preliminary 06/04/24 15:18 Blood - Blood Blood Culture Gram Stain - Preliminary 06/04/24 15:18 Blood - Blood Anaerobic Blood Culture - Preliminary 06/04/24 15:18 Blood - Blood Gram Stain - Preliminary 06/04/24 14:50 Nasopharnyx Influenza Type A Antigen Screen - Final 06/04/24 14:50 Nasopharnyx Influenza Type B Antigen Screen - Final Assessment/ Plan: Nephrology No dyspnea No chest pain Feeling better No acute events overnight Vitals, medications, blood work and imaging reviewed in the chart General: In no apparent distress, Oriented x3, Cooperative HEENT: Atraumatic Neck: Supple Respiratory: Normal air movement Cardiovascular: Regular rate/rhythm Gastrointestinal: Non-distended, No guarding Musculoskeletal: No clubbing, No contractures Integumentary: No rashes, No cyanosis Neurological: Normal speech Laboratory Data (last 24 hrs) 06/04/24 06/04/24 06/04/24 15:05 15:05 15:05 WBC 17.40 H Hgb 9.0 L Hct 28.5 L Plt Count 169 PT 11.4 INR 1.02 APTT 25.8 Sodium 129 L Potassium 4.8 BUN 77 H Creatinine 7.04 H Glucose 578 H* Total Bilirubin 0.4 AST 16 ALT 21 Alkaline Phosphatase 157 H Imagings Data: EXAM DESCRIPTION: CT - Chest Abd Pelvis Wo Con - 06/04/2024 2:30 pm CLINICAL HISTORY: Shortness of breath, chest and abdominal pain COMPARISON: None TECHNIQUE: Computed axial tomography of the chest, abdomen and pelvis was obtained. Oral contrast was given. IV contrast was not requested. All CT scans are performed using dose optimization technique as appropriate and may include automated exposure control or mA/KV adjustment according to patient size. FINDINGS: The evaluation of mediastinum, kay, vessels and solid organs is limited secondary to the lack of IV contrast administration Small calcific opacity right upper lobe appears chronic. Linear opacity posterior right lower lobe likely also chronic. Left lung appears clear 1 centimeter pretracheal mediastinal lymph node. Coronary arterial calcifications. Cardiomegaly A pleural effusion is not present. A pericardial effusion is not seen. The liver, spleen, pancreas, adrenals and kidneys appear grossly normal Prominent atherosclerotic disease. No evidence of diverticulitis. No adnexal mass. Gallbladder wall thickening Small to moderate periumbilical hernia IMPRESSION: Gallbladder wall thickening. Ultrasound recommended EXAM DESCRIPTION: US - Abdomen Exam Limited - 06/04/2024 4:25 pm CLINICAL HISTORY: Abdominal pain. COMPARISON: CT June 04, 2024 FINDINGS: Small gallstone. Gallbladder wall measures 7 millimeters with pericholecystic fluid. The biliary tree is normal caliber. IMPRESSION: Cholelithiasis. Thickened gallbladder wall with pericholecystic fluid probably indicating cholecystitis Conclusions/Impression: 73 yo HF admitted for cholecystitis complicated by GNR sepsis -Continue Abx ESRD Hyperkalemia -HD TIW -HD CVC removed 06-05-24 -Continue HD through LUE AVF HTN with CKD/ CHF -Hold antihypertensives at this time Diastolic CHF, chronic -Low sodium diet -HD with UF Anemia in CKD -Retacrit qHD CKD MBD -Start Ergo -Start Phoslo Atherosclerosis of the aorta -Restart statin Hospitalist notes reviewed Case reviewed with the hospitalist team
[2024-06-06] MEDS: ATORVASTATIN 20 MG TAB PO SCH (21:49)
[2024-06-06 22:25] VITALS: O2SAT 91
[2024-06-07 04:42] LABS: Absolute Basophils 0.1 K/uL (0-0.5); Absolute Eosinophils 0.3 K/uL (0-0.5); Absolute Lymphocytes (CBC) 2.1 K/uL (0.7-4.9); Basophils % 0.6 % (0-1.3); Hematocrit 27.1 % (36.0-45.0); Hemoglobin 8.9 g/dL (12.0-15.0); Lymphocytes % 22.1 % (15.3-44.8); MCH 28.4 pg (27.0-35.0); MCHC 32.9 g/dL (32.0-36.0); MCV 86.5 fL (80-100); MPV 8.8 fL (7.6-11.3); Neutrophils % 63.3 % (41.7-73.7); Platelets 140 thou/uL (152-406); RBC Red Blood Cell Count 3.13 M/uL (3.86-4.86); Red Cell Distribution Width 15.7 % (12.1-15.2)
[2024-06-07] MEDS ORDERED: HYDRALAZINE HCL 20 MG/ML VIAL IV PRN (08:26)
[2024-06-07] MEDS: CALCIUM ACETATE 667 MG TAB PO SCH (09:04)
[2024-06-07] MEDS: DRISDOL (VITAMIN D=ERGOCALCIFEROL) 50000 UNIT CAP PO SCH (09:05)
[2024-06-07 12:29] VITALS: BP 160/63; TEMP 98.3
--- NOTE | 2024-06-07 12:29 | P.DS ---
Admission Date: 06/05/24 Discharge Date: 06/07/24 Disposition: ROUTINE DISCHARGE Discharge Condition: GOOD Reason for Admission: Fever Brief History of Present Illness: 73 yrs old [id number] female with a past medical history End stage renal disease; Dialysis M,W,F; Diabetes mellitus; Hypertensive disorder; presents to the emergency room with fever. She reports associated nausea vomiting chills. She reports going to [facility] dialysis today and was sent home due to fever of 102. She reports associated fever, nausea vomiting abdominal pain and chills over the last several days that has been intermittent. She reports symptoms worse today. She lives near [facility]. Is here visiting her family. She reports she has dialysis scheduled at [facility] Tuesday. She denies chest pain, edema, dizziness. Family is at bedside, patient was evaluated by Dr. Quiroz for acute cholecystitis, with possible cholecystectomy in the a.m. Nephrology to consult end-stage renal disease on to eval hemodialysis needed while inpatient. Plan to admit to observation, for acute cholecystitis, end-stage renal disease on hemodialysis, with nephrology to consult. Hospital Course: Pt is a 73 yo female with past medical history of End stage renal disease; Dialysis MWF, Diabetes mellitus, and Hypertensive disorder who presented with fever, nauseaa nd vomiting. She was sent to the ER from [facility] [place] [facility]. On admission, CT abd showed acute cholecystitis. We continued zosyn and consulted Gen surgeon. Gen surgeon did lap cholecystectomy and we continued prn pain med. Blood cx grew gram negative rods. We discharged pt with levaquin 750mg po Q48h for 1 week. We gave lokelma for hyperkalemia. We continued home meds for htn and Diabetes. Pt was in NAD prior to discharge. Vital Signs/Physical Exam: Temp Pulse Resp BP Pulse Ox 98.3 F 67 16 160/63 H 95 06/07/24 12:00 06/07/24 12:00 06/07/24 12:00 06/07/24 12:00 06/07/24 12:00 Laboratory Data at Discharge: WBC 9.50 thou/uL (4.3-10.9) 06/07/24 04:20 Hgb 8.9 g/dL (12.0-15.0) L 06/07/24 04:20 Hct 27.1 % (36.0-45.0) L 06/07/24 04:20 Plt Count 140 thou/uL (152-406) L 06/07/24 04:20 PT 11.4 SECONDS (9.4-12.5) 06/04/24 15:05 INR 1.02 06/04/24 15:05 APTT 25.8 SECONDS (24.3-36.9) 06/04/24 15:05 Sodium 134 mEq/L (136-145) L 06/07/24 04:20 Potassium 4.0 mEq/L (3.5-5.1) D 06/07/24 04:20 BUN 25 mg/dL (7-18) H 06/07/24 04:20 Creatinine 3.54 mg/dL (0.55-1.02) H 06/07/24 04:20 Glucose 136 mg/dL (74-106) H 06/07/24 04:20 Phosphorus 5.7 mg/dL (2.5-4.9) H 06/06/24 04:27 Magnesium 2.3 mg/dL (1.6-2.4) 06/06/24 04:27 Total Bilirubin 0.6 mg/dL (0.2-1.0) 06/06/24 04:27 AST 81 U/L (15-37) H 06/06/24 04:27 ALT 45 U/L (13-56) 06/06/24 04:27 Alkaline Phosphatase 109 U/L (45-117) 06/06/24 04:27 Home Medications: Aspirin [Aspirin EC] 81 mg PO DAILY 06/05/24 Atorvastatin Calcium 40 mg PO BEDTIME 06/05/24 Carvedilol [Coreg] 12.5 mg PO BID 06/05/24 Clopidogrel Bisulfate [Plavix] 75 mg PO DAILY 06/05/24 Ferric Citrate [Auryxia] 1 g PO TID 06/05/24 Insulin Aspart Prot/Insuln Asp [Novolog Mix 70-30 Flexpen] 40 unit SQ DAILY 06/05/24 Nifedipine [Nifedipine ER] 30 mg PO DAILY 06/05/24 levoFLOXacin [Levaquin] 750 mg PO Q48H 6 Days #3 tab 06/07/24 New Medications: levoFLOXacin [Levaquin] 750 mg PO Q48H 6 Days #3 tab Physician Discharge Instructions: Continue ad mikhail activity as tolerated. Take levaquin 750mg po Q48h for 1 week. FOllow up with PCP within 1 - 2 weeks. Diet: AHA Activity: Ad mikhail Followup: BILLY CERVANTES [Primary Care Provider] -
[2024-06-07] MEDS: levoFLOXacin 750 MG TAB PO SCH (12:31)
[2024-06-07] MEDS ORDERED: PNEUMOCOCCAL VACCINE 0.5 ML IMVAC ONE (14:00)
--- NOTE | 2024-06-07 20:20 | P.PN ---
Date of Service: 06/07/24 Vital Signs Temp Pulse Resp BP Pulse Ox 98.3 F 67 16 160/63 H 95 06/07/24 12:00 06/07/24 12:00 06/07/24 12:00 06/07/24 12:00 06/07/24 12:00 Microbiology Results 06/04/24 15:18 Blood - Blood Aerobic Blood Culture - Final 06/04/24 15:18 Blood - Blood Blood Culture Gram Stain - Final 06/04/24 15:18 Blood - Blood Anaerobic Blood Culture - Final 06/04/24 15:18 Blood - Blood Gram Stain - Final 06/04/24 15:05 Blood - Blood Aerobic Blood Culture - Final 06/04/24 15:05 Blood - Blood Blood Culture Gram Stain - Final 06/04/24 15:05 Blood - Blood Anaerobic Blood Culture - Final 06/04/24 15:05 Blood - Blood Gram Stain - Final 06/04/24 14:50 Nasopharnyx Influenza Type A Antigen Screen - Final 06/04/24 14:50 Nasopharnyx Influenza Type B Antigen Screen - Final Assessment/ Plan: Nephrology No dyspnea No chest pain Feeling better No acute events overnight Vitals, medications, blood work and imaging reviewed in the chart General: In no apparent distress, Oriented x3, Cooperative HEENT: Atraumatic Neck: Supple Respiratory: Normal air movement Cardiovascular: Regular rate/rhythm Gastrointestinal: Non-distended, No guarding Musculoskeletal: No clubbing, No contractures Integumentary: No rashes, No cyanosis Neurological: Normal speech Laboratory Data (last 24 hrs) 06/04/24 06/04/24 06/04/24 15:05 15:05 15:05 WBC 17.40 H Hgb 9.0 L Hct 28.5 L Plt Count 169 PT 11.4 INR 1.02 APTT 25.8 Sodium 129 L Potassium 4.8 BUN 77 H Creatinine 7.04 H Glucose 578 H* Total Bilirubin 0.4 AST 16 ALT 21 Alkaline Phosphatase 157 H Imagings Data: EXAM DESCRIPTION: CT - Chest Abd Pelvis Wo Con - 06/04/2024 2:30 pm CLINICAL HISTORY: Shortness of breath, chest and abdominal pain COMPARISON: None TECHNIQUE: Computed axial tomography of the chest, abdomen and pelvis was obtained. Oral contrast was given. IV contrast was not requested. All CT scans are performed using dose optimization technique as appropriate and may include automated exposure control or mA/KV adjustment according to patient size. FINDINGS: The evaluation of mediastinum, kay, vessels and solid organs is limited secondary to the lack of IV contrast administration Small calcific opacity right upper lobe appears chronic. Linear opacity posterior right lower lobe likely also chronic. Left lung appears clear 1 centimeter pretracheal mediastinal lymph node. Coronary arterial calcifications. Cardiomegaly A pleural effusion is not present. A pericardial effusion is not seen. The liver, spleen, pancreas, adrenals and kidneys appear grossly normal Prominent atherosclerotic disease. No evidence of diverticulitis. No adnexal mass. Gallbladder wall thickening Small to moderate periumbilical hernia IMPRESSION: Gallbladder wall thickening. Ultrasound recommended EXAM DESCRIPTION: US - Abdomen Exam Limited - 06/04/2024 4:25 pm CLINICAL HISTORY: Abdominal pain. COMPARISON: CT June 04, 2024 FINDINGS: Small gallstone. Gallbladder wall measures 7 millimeters with pericholecystic fluid. The biliary tree is normal caliber. IMPRESSION: Cholelithiasis. Thickened gallbladder wall with pericholecystic fluid probably indicating cholecystitis Conclusions/Impression: 73 yo HF admitted for cholecystitis complicated by GNR sepsis -Continue Abx ESRD Hyperkalemia -HD TIW -HD CVC removed 06-05-24 -Continue HD through LUE AVF HTN with CKD/ CHF -Restart antihypertensives Diastolic CHF, chronic -Low sodium diet -HD with UF Anemia in CKD -Retacrit qHD CKD MBD -Continue Ergo -Continue Phoslo Atherosclerosis of the aorta -Continue statin Hospitalist notes reviewed Case reviewed with the hospitalist team
--- NOTE | 2024-06-12 18:11 | EKG ---
Test Date: 2024-06-04 Test Time: 14:16:33 Cooler Room Worker: BEULAH MEASUREMENT RESULTS: Intervals: Rate: 103 MN: 152 QRSD: 90 QT: 354 QTc: 463 [place]: P: MN: 152 QRS: -44 T: 102 INTERPRETIVE STATEMENTS: Sinus tachycardia Left axis deviation Marked ST abnormality, possible inferior subendocardial injury Abnormal ECG No previous ECG available for comparison Electronically Signed On 06-12-24 17:55:46 CDT by Irwin Morris
== END 2024-06-07 13:11 | disposition home or self-care (01) | DRG 853 ==
LOC: ER 13:47 → 2ND 18:04 → OBSVTOIN 06-05 11:12 → 2ND 06-05 16:34
PROVIDERS: ADMIT Hospitalist; ATTEND Hospitalist
PROC: 0FT44ZZ Resection of Gallbladder, Percutaneous Endoscopic Approach (ICD-10-PCS; 2024-06-05)
PROC: BF52200 Other Imaging of Gallbladder using Fluorescing Agent, Indocyanine Green Dye, Intraoperative (ICD-10-PCS; 2024-06-05)
PROC: 0JPT0XZ Removal of Tunneled Vascular Access Device from Trunk Subcutaneous Tissue and Fascia, Open Approach (ICD-10-PCS; 2024-06-05)
PROC: 5A1D70Z Performance of Urinary Filtration, Intermittent, Less than 6 Hours Per Day (ICD-10-PCS; principal; 2024-06-05 16:00)
DX: A41.9 Sepsis, unspecified organism (principal); N18.6 End stage renal disease; K81.0 Acute cholecystitis; I50.32 Chronic diastolic (congestive) heart failure; I13.2 Hypertensive heart and chronic kidney disease with heart failure and with stage 5 chronic kidney disease, or end stage renal disease; E87.1 Hypo-osmolality and hyponatremia; R65.20 Severe sepsis without septic shock; E11.22 Type 2 diabetes mellitus with diabetic chronic kidney disease; E11.65 Type 2 diabetes mellitus with hyperglycemia; D63.1 Anemia in chronic kidney disease; E87.5 Hyperkalemia; I25.10 Atherosclerotic heart disease of native coronary artery without angina pectoris; Z99.2 Dependence on renal dialysis; Z79.4 Long term (current) use of insulin; Z11.52 Encounter for screening for COVID-19; Z79.82 Long term (current) use of aspirin; Z79.02 Long term (current) use of antithrombotics/antiplatelets; Z79.899 Other long term (current) drug therapy; Z91.158 Patient's noncompliance with renal dialysis for other reason
CPT/HCPCS: 36415; 71250; 74176; 76705; 80048; 80053; 82947; 83605; 83735; 84100; 85025; 85610; 85730; 86706; 87040; 87070; 87205; 87340; 87804; 87811; 88300; 88304; 90935; 93005; 96365; 96366; 96367; 96375; 99285; G0257; G0378; J0692; J1644; J2001; J2175; J2405; J2543; J2704; J2710; J3010; J7040; Q4081